=== PATIENT | male | born 1980 | race Caucasian/White ===

== ENCOUNTER 2018-06-02 01:57 | Emergency (ER) | payer OTHER ==
[~2018-06-02] VITALS: Ht 182.9 cm; Wt 90.7 kg
[2018-06-02 02:03] VITALS: BP 127/98
--- NOTE | 2018-06-02 02:11 | NUR ---
PT AMBULATED TO BED 12 WITH VSS.
--- NOTE | 2018-06-02 02:56 | NUR ---
PATIENT LEFT WITHOUT BEING SEEN BY DR. FERREIRA. NO FURTHER CARE PROVIDED FOR PATIENT.
[2018-06-02 03:56] LABS: APPEARANCE,URINE SL CLOUDY (CLEAR); BILIRUBIN,URINE 1+ (NEGATIVE); BLOOD, URINE TRACE-I (NEGATIVE); COLOR,URINE YELLOW (YELLOW); LEUKOCYTE ESTERASE ,URINE NEGATIVE (NEGATIVE); NITRITE, URINE NEGATIVE (NEGATIVE); PH,URINE 5.5 (5.0-9.0); UGLUCOSE NEGATIVE (NEGATIVE)
[2018-06-02 04:37] LABS: RBC,URINE 0-5 (RARE) /HPF (0-5); WBC,URINE 0-5 (RARE) /HPF (0-5)
== END 2018-06-02 02:56 | disposition left against medical advice (07) ==
LOC: MED 01:57
DX: K92.0 Hematemesis (principal); Z53.21 Procedure and treatment not carried out due to patient leaving prior to being seen by health care provider
CPT/HCPCS: 81001

== ENCOUNTER 2019-04-28 07:31 | Emergency (ER) | payer SELFPAY ==
[~2019-04-28] VITALS: Ht 182.9 cm; Wt 99.8 kg
[2019-04-28 07:33] VITALS: BP 135/77
--- NOTE | 2019-04-28 07:41 | NUR ---
PATIENT AMBULATED TO BED 11
--- NOTE | 2019-04-28 07:43 | NUR ---
PT TO ED WITH RT WRIST ABSCESS S/P INSULIN PEN INJECTION X 3 DAYS. AREA IS REDDNED AND WARM TO TOUCH. NO DRANIAGE NOTED. PT PLACED INTO BED, PENDING MD FIELDS.
[2019-04-28 08:08] VITALS: BP 135/77
--- NOTE | 2019-04-28 08:09 | NUR ---
Patient discharged with v/s stable. Written and verbal after care instructions given and explained. Patient alert, oriented and verbalized understanding of instructions. Ambulatory with steady gait. All questions addressed prior to discharge. ID band removed. Patient advised to follow up with PMD. Rx of KEFLEX, ZOFRAN, CLONIDINE, BENTYL given. Patient educated on indication of medication including possible reaction and side effects. Opportunity to ask questions provided and answered.
== END 2019-04-28 08:09 | disposition home or self-care (01) ==
LOC: MED 07:31
DX: L02.413 Cutaneous abscess of right upper limb (principal); F11.23 Opioid dependence with withdrawal; J45.909 Unspecified asthma, uncomplicated; K21.9 Gastro-esophageal reflux disease without esophagitis; Z79.1 Long term (current) use of non-steroidal anti-inflammatories (NSAID)
CPT/HCPCS: 99283

== ENCOUNTER 2019-09-22 21:54 | Emergency (ER) | payer SELFPAY ==
[~2019-09-22] VITALS: Ht 182.9 cm; Wt 90.7 kg
[2019-09-22 22:00] VITALS: BP 140/78
--- NOTE | 2019-09-22 22:03 | NUR ---
TO LOBBY A/W BED AMBULATORY
--- NOTE | 2019-09-22 23:00 | NUR ---
AMBULATED TO BED 12
[2019-09-22 23:06] VITALS: BP 140/78
--- NOTE | 2019-09-22 23:06 | NUR ---
38 Y/O M PRESENTS TO ED WITH C/O ABOMINAL PAIN AND CONSTIPATION. PT REPORTS LBM X1 MONTH AGO AND HAS TRIED LAXATIVES WITH NO RESULT. 8/10 ABDOMINAL PAIN, ACHING. PAIN DOES NOT RADIATE. BOWEL SOUNDS PRESENTS [id number]. PT DENIES NARCOTIC USE. WILL CONTINUE TO MONITOR.
--- NOTE | 2019-09-23 00:15 | NUR ---
PT SEEN WITH EYES CLOSED. VISIBLE CHEST RISE AND FALL NOTED. WILL CONTINUE TO MONITOR.
[2019-09-23 00:31] LABS: BASOPHILS # (AUTO) 0.1 K/uL (0.00-0.22); BASOPHILS % (AUTO) 0.8 % (0.0-2.0); EOSINOPHILS # (AUTO) 0.3 K/uL (0-0.4); EOSINOPHILS % (AUTO) 4.5 % (0.0-4.0); HEMATOCRIT 40.9 % (36-52); HEMOGLOBIN 13.9 g/dL (12.0-18.0); LYMPHOCYTES # (AUTO) 2.1 K/uL (2.0-11.5); LYMPHOCYTES % (AUTO) 27.5 % (20.5-51.1); MEAN CORPUSCULAR HEMOGLOBIN 28 pg (27-31); MEAN CORPUSCULAR HGB CONC 34 g/dL (33-37); MEAN CORPUSCULAR VOLUME 83.4 fL (80-94); MONOCYTES # (AUTO) 0.6 K/uL (0.8-1.0); MONOCYTES % (AUTO) 7.6 % (1.7-9.3); NEUTROPHILS # (AUTO) 4.6 K/uL (1.8-7.7); NEUTROPHILS % (AUTO) 59.6 % (42.2-75.2); PLATELET COUNT (AUTO) 281 K/uL (140-450); RED BLOOD CELL COUNT(AUTO) 4.91 MIL/uL (4.20-6.10); RED CELL DISTRIBUTION WIDTH 13.7 % (11.6-13.7); WHITE BLOOD COUNT (AUTO) 7.6 K/uL (4.8-10.8)
[2019-09-23 00:39] LABS: APPEARANCE,URINE CLEAR (CLEAR); BILIRUBIN,URINE NEGATIVE (NEGATIVE); BLOOD, URINE NEGATIVE (NEGATIVE); COLOR,URINE YELLOW (YELLOW); LEUKOCYTE ESTERASE ,URINE NEGATIVE (NEGATIVE); NITRITE, URINE NEGATIVE (NEGATIVE); UGLUCOSE NEGATIVE (NEGATIVE)
[2019-09-23 00:44] LABS: ANION GAP 10.6 (8-16); CARBON DIOXIDE 33.4 mmol/L (21-32); CREATININE 0.8 mg/dL (0.7-1.3)
[2019-09-23 00:48] LABS: ALBUMIN 3.7 g/dL (3.4-5.0); TOTAL BILIRUBIN 0.6 mg/dL (0.0-1.0)
--- NOTE | 2019-09-23 01:22 | NUR ---
Patient discharged with v/s stable. Written and verbal after care instructions given and explained. Patient alert, oriented and verbalized understanding of instructions. Ambulatory with steady gait. All questions addressed prior to discharge. ID band removed. Patient advised to follow up with PMD. Rx of MILK OF MAGNESIA given. Patient educated on indication of medication including possible reaction and side effects. Opportunity to ask questions provided and answered.
== END 2019-09-23 01:22 | disposition home or self-care (01) ==
LOC: MED 21:54
DX: K59.00 Constipation, unspecified (principal); R10.84 Generalized abdominal pain; J45.909 Unspecified asthma, uncomplicated; Z87.11 Personal history of peptic ulcer disease
CPT/HCPCS: 36415; 80053; 81003; 82150; 83690; 85025; 99284

== ENCOUNTER 2020-01-10 08:59 | Emergency (ER) | payer MEDICAID ==
[~2020-01-10] VITALS: Ht 182.9 cm; Wt 99.8 kg
--- NOTE | 2020-01-10 09:14 | NUR ---
PATIENT AMBULATED TO BED 8.
[2020-01-10 09:17] VITALS: BP 139/69
--- NOTE | 2020-01-10 09:22 | NUR ---
39YO M C/O AND EYE PAIN X 3 DAYS. PT STATES PAIN OF 10/10, BURNING. +REDNESS, +DRYNESS, +ITCHINESS, -DISCHARGE. PT ADMITS TO APPLYING VISINE EYEDROPS, WHICH PROVIDED NO RELIEF. PT ALSO COMPLAINS OF BLURRING OF VISION AND HEADACHE. WITH PRODUCTIVE COUGH X 3 DAYS, YELLOWISH SPUTUM. DENIES FEVER, RUNNY NOSE. IN ER, VSS. AOX4, PERRL 2MM. PT POSITIONED IN BED COMFORTABLY. ERMD MADE AWARE. PMH: CHILDHOOD ASTHMA NO MEDS
[2020-01-10] MEDS ORDERED: IPRATROPIUM 0.02% 0.5 MG/2.5 ML NEBU INH ONE (09:40)
[2020-01-10] MEDS ORDERED: predniSONE 20 MG TAB PO ONE (09:40)
[2020-01-10] MEDS ORDERED: ALBUTEROL 0.083% 2.5 MG/3 ML NEBU INH ONE (09:40)
--- NOTE | 2020-01-10 09:45 | NUR ---
RT AT BEDSIDE AT THIS TIME
[2020-01-10 10:50] VITALS: BP 139/69
--- NOTE | 2020-01-10 10:50 | NUR ---
Patient discharged with v/s stable. Written and verbal after care instructions given and explained. Patient alert, oriented and verbalized understanding of instructions. Ambulatory with steady gait. All questions addressed prior to discharge. ID band removed. Patient advised to follow up with PMD. Rx of AEROCHAMBER WITH MASK, PREDNISONE, ALBUTEROL given. Patient educated on indication of medication including possible reaction and side effects. Opportunity to ask questions provided and answered.
== END 2020-01-10 10:50 | disposition home or self-care (01) ==
LOC: MED 08:59
DX: B34.9 Viral infection, unspecified (principal); J98.01 Acute bronchospasm; R03.0 Elevated blood-pressure reading, without diagnosis of hypertension; F17.200 Nicotine dependence, unspecified, uncomplicated; J45.909 Unspecified asthma, uncomplicated; K21.9 Gastro-esophageal reflux disease without esophagitis; Z88.8 Allergy status to other drugs, medicaments and biological substances; Z71.6 Tobacco abuse counseling
CPT/HCPCS: 71045; 94640; 99283; J7512; J7613; J7644; Q0092

== ENCOUNTER 2020-01-31 13:04 | Emergency (ER) | payer MEDICAID ==
[~2020-01-31] VITALS: Ht 182.9 cm; Wt 110.2 kg
[2020-01-31 13:14] VITALS: BP 138/80
--- NOTE | 2020-01-31 13:15 | NUR ---
Patient ambulated to bed 3. RN evaluating patient at bedside.
--- NOTE | 2020-01-31 13:15 | NUR ---
39 Y/O M C/C RUE/LUE MULTIPLE ABSCESSES X 1 WEEK. PER PT PAIN 05/25, ON AND OFF. PT DENIES BEING BITTEN BY ANYTHING. PT NKA. HX ASTHMA. RX ALBUTEROL. NO OTHER S/S. SIDE RAIL X1.
[2020-01-31] MEDS ORDERED: LIDOCAINE MPF 1% 10 MG/ML VIAL INJ ONE (13:30)
--- NOTE | 2020-01-31 13:42 | NUR ---
YAO Szymanski at bedside for incision and drainage of abscess.
--- NOTE | 2020-01-31 13:44 | NUR ---
2ND VIAL OF XYLOCAINE 1% OBTAINED PER P.A BONILLA
--- NOTE | 2020-01-31 13:46 | NUR ---
Dayo BONILLA AT BEDSIDE
[2020-01-31] MEDS ORDERED: cefTRIAXone 1,000 MG in LIDOCAINE MPF 1% 2.1 ML IM ONE (14:05)
[2020-01-31] MEDS ORDERED: cefTRIAXone 1,000 MG VIAL ONE (14:17)
[2020-01-31] MEDS ORDERED: LIDOCAINE MPF 1% 5 ML ONE (14:18)
[2020-01-31 14:29] VITALS: BP 130/78
--- NOTE | 2020-01-31 14:29 | NUR ---
Patient discharged with v/s stable. Written and verbal after care instructions given and explained. Patient alert, oriented and verbalized understanding of instructions. Ambulatory with steady gait. All questions addressed prior to discharge. ID band removed. Patient advised to follow up with PMD. Rx of ACETAMINOPHEN,KEFLEX,BACTRIM given. Patient educated on indication of medication including possible reaction and side effects. Opportunity to ask questions provided and answered.
== END 2020-01-31 14:29 | disposition home or self-care (01) ==
LOC: MED 13:04
DX: L02.818 Cutaneous abscess of other sites (principal); J45.909 Unspecified asthma, uncomplicated; F17.210 Nicotine dependence, cigarettes, uncomplicated; Z91.09 Other allergy status, other than to drugs and biological substances
CPT/HCPCS: 96372; 99284; J0696; J2001

== ENCOUNTER 2020-07-27 16:06 | Emergency (ER) | payer MEDICAID ==
[~2020-07-27] VITALS: Ht 182.9 cm; Wt 99.8 kg
[2020-07-27 16:30] VITALS: BP 146/80
--- NOTE | 2020-07-27 16:37 | NUR ---
Note undone in EDM - 07/27/20 at 1640 by [facility] Patient discharged with v/s stable. Written and verbal after care instructions given and explained. Patient alert, oriented and verbalized understanding of instructions. Carried with by parent. All questions addressed prior to discharge. ID band removed. Patient advised to follow up with PMD. Rx of BENEDRYL given. Patient educated on indication of medication including possible reaction and side effects. Opportunity to ask questions provided and answered.
--- NOTE | 2020-07-27 16:39 | NUR ---
39 YEAR OLD MALE COMPLAINS OF MECHANICAL FALL ON STAIRS AND HIT LEFT SIDE OF FACE AND HAS PAIN IN NECK, SHOULDER, BUT MORE PAIN IN LOWER BACK AND LEFT LEG. PT WITHOUT VISIBLE ABRASION PRESENT, LEFT EYE REDDENED. PT STATES ABLE TO SEE WITHOUT BLURRY ON LEFT EYE. PT DENIES LOC. PT AOX4, BREATHING EVEN AND UNLABORED, SKIN WARM AND DRY. BED IN LOWEST POSITION, LOCKED, BED RAIL UPX1. PMH - ASTHMA ALLERGIES - IBUPROFEN
[2020-07-27 18:09] VITALS: BP 121/85
--- NOTE | 2020-07-27 18:10 | NUR ---
Patient discharged with v/s stable. Written and verbal after care instructions about back pain and cervical sprain given and explained. Patient alert, oriented and verbalized understanding of instructions. Ambulatory with steady gait. All questions addressed prior to discharge. ID band removed. Patient advised to follow up with PMD. Rx of ibuprofen given. Patient educated on indication of medication including possible reaction and side effects. Opportunity to ask questions provided and answered.
== END 2020-07-27 18:10 | disposition home or self-care (01) ==
LOC: MED 16:06
DX: S16.1XXA Strain of muscle, fascia and tendon at neck level, initial encounter (principal); M54.9 Dorsalgia, unspecified; R03.0 Elevated blood-pressure reading, without diagnosis of hypertension; R51 Headache; J45.909 Unspecified asthma, uncomplicated; K21.9 Gastro-esophageal reflux disease without esophagitis; Z88.6 Allergy status to analgesic agent; W18.39XA Other fall on same level, initial encounter; Y93.89 Activity, other specified; Y92.89 Other specified places as the place of occurrence of the external cause; Y99.8 Other external cause status
CPT/HCPCS: 70150; 72040; 72100; 99284

== ENCOUNTER 2022-02-19 13:17 | Emergency (ER) | payer MEDICAID ==
[~2022-02-19] VITALS: Ht 182.9 cm; Wt 99.8 kg
[2022-02-19 13:28] VITALS: BP 136/75
--- NOTE | 2022-02-19 13:31 | NUR ---
C/O 10/ LEFT EAR PAIN RADIATING TO LEFT JAW X 3 DAYS. PMH: ASTHMA
[2022-02-19] MEDS ORDERED: ONDANSETRON 4 MG ODT PO ONE (13:55)
[2022-02-19] MEDS ORDERED: HYDROcodone/APAP 5/325 MG 1 TAB TAB PO ONE (13:55)
[2022-02-19] MEDS ORDERED: AMOX-1230 PO (14:30)
[2022-02-19] MEDS ORDERED: ACET-8386 PO (14:30)
--- NOTE | 2022-02-19 14:49 | NUR ---
Patient discharged with v/s stable. Written and verbal after care instructions given and explained. Patient alert, oriented and verbalized understanding of instructions. Ambulatory with steady gait. All questions addressed prior to discharge. ID band removed. Patient advised to follow up with PMD. Rx of HYDROCODONE/ACETAMINOPHEN AND AMOXICILLIN/POTASSIUM CLAV given. Patient educated on indication of medication including possible reaction and side effects. Opportunity to ask questions provided and answered.
[2022-02-19 14:51] VITALS: BP 139/83
== END 2022-02-19 14:49 | disposition home or self-care (01) ==
LOC: MED 13:17
DX: R51.9 Headache, unspecified (principal); I88.9 Nonspecific lymphadenitis, unspecified; J45.909 Unspecified asthma, uncomplicated; K21.9 Gastro-esophageal reflux disease without esophagitis; Z88.6 Allergy status to analgesic agent
CPT/HCPCS: 99283; Q0162

== ENCOUNTER 2022-03-02 23:30 | Emergency (ER) | payer MEDICAID ==
[~2022-03-02] VITALS: Ht 180.3 cm; Wt 119.3 kg
[~2022-03-02 23:30] MED LIST: ACET-8386 PO; AMOX-1230 PO
[2022-03-02 23:41] VITALS: BP 143/98
--- NOTE | 2022-03-02 23:45 | NUR ---
PATIENT TO LOBBY
[2022-03-02] MEDS ORDERED: FAMOTIDINE 20 MG/2 ML VIAL IVP ONE (23:50)
[2022-03-02] MEDS ORDERED: NACL 0.9% 1,000 ML IV ONE (23:50)
--- NOTE | 2022-03-02 23:50 | NUR ---
Dr. Jasso at triage to exam patient.
--- NOTE | 2022-03-02 23:55 | NUR ---
PT TAKEN TO CT
--- NOTE | 2022-03-03 00:02 | NUR ---
PT RETURN FROM RADIOLOGY TO ER LOBBY
--- NOTE | 2022-03-03 00:07 | NUR ---
Blood for labwork drawn from left arm per cotton cleaner. Patient tolerated well.
[2022-03-03 00:20] LABS: BASOPHILS % (AUTO) 0.6 % (0.0-2.0); EOSINOPHILS # (AUTO) 0.3 K/uL (0-0.4); EOSINOPHILS % (AUTO) 3.3 % (0.0-4.0); HEMATOCRIT 40.4 % (36-52); LYMPHOCYTES # (AUTO) 2.9 K/uL (2.0-11.5); LYMPHOCYTES % (AUTO) 33.9 % (20.5-51.1); MEAN CORPUSCULAR HEMOGLOBIN 29 pg (27-31); MEAN CORPUSCULAR HGB CONC 35 g/dL (33-37); MEAN CORPUSCULAR VOLUME 82.6 fL (80-94); MONOCYTES # (AUTO) 0.6 K/uL (0.8-1.0); MONOCYTES % (AUTO) 7.5 % (1.7-9.3); NEUTROPHILS # (AUTO) 4.6 K/uL (1.8-7.7); NEUTROPHILS % (AUTO) 54.7 % (42.2-75.2); PLATELET COUNT (AUTO) 251 K/uL (140-450); RED BLOOD CELL COUNT(AUTO) 4.89 MIL/uL (4.20-6.10); RED CELL DISTRIBUTION WIDTH 13.6 % (11.6-13.7); WHITE BLOOD COUNT (AUTO) 8.4 K/uL (4.8-10.8)
[2022-03-03 00:38] LABS: ALBUMIN 3.8 g/dL (3.4-5.0); ANION GAP 9.8 (8-16); CARBON DIOXIDE 29.8 mmol/L (21-32); CREATININE 0.8 mg/dL (0.6-1.3); POTASSIUM 3.6 mmol/L (3.5-5.1); TOTAL BILIRUBIN 0.5 mg/dL (0.0-1.0)
--- NOTE | 2022-03-03 01:06 | NUR ---
PT TAKEN TO BED 1
--- NOTE | 2022-03-03 01:10 | NUR ---
Patient BIB by family from home. C/O vomiting blood x today. Patient reported, had vomiting with blood today, constipation on and off for a month.
[2022-03-03] MEDS ORDERED: FAMOTIDINE 20 MG/2 ML VIAL ONE ×2 (01:28→01:30)
[2022-03-03 01:34] LABS: APPEARANCE,URINE CLEAR (CLEAR); BILIRUBIN,URINE 1+ (NEGATIVE); BLOOD, URINE NEGATIVE (NEGATIVE); COLOR,URINE DARK YELLOW (YELLOW); LEUKOCYTE ESTERASE ,URINE NEGATIVE (NEGATIVE); NITRITE, URINE NEGATIVE (NEGATIVE); UGLUCOSE NEGATIVE (NEGATIVE)
[2022-03-03] MEDS ORDERED: ESOM40EC PO (02:38)
[2022-03-03 02:45] VITALS: BP 140/78
--- NOTE | 2022-03-03 02:45 | NUR ---
Patient discharged with v/s stable. Written and verbal after care instructions given and explained. Patient alert, oriented and verbalized understanding of instructions. Ambulatory with steady gait. All questions addressed prior to discharge. ID band removed. Patient advised to follow up with PMD. Rx of Nexium given. Patient educated on indication of medication including possible reaction and side effects. Opportunity to ask questions provided and answered.
== END 2022-03-03 02:45 | disposition home or self-care (01) ==
LOC: MED 23:30
DX: K52.9 Noninfective gastroenteritis and colitis, unspecified (principal); A04.8 Other specified bacterial intestinal infections
CPT/HCPCS: 36415; 74176; 80053; 81003; 82150; 83690; 85025; 87040; 96361; 96374; 99283; J3490; J7030

== ENCOUNTER 2022-04-04 19:36 | Emergency (ER) | payer MEDICAID ==
[~2022-04-04] VITALS: Ht 182.9 cm; Wt 112.6 kg
[~2022-04-04 19:36] MED LIST changes: +ESOM40EC PO
[2022-04-04 20:21] VITALS: BP 126/82
--- NOTE | 2022-04-04 20:27 | NUR ---
PT TAKEN TO BED 06.
[2022-04-04] MEDS ORDERED: AMOXIL/CLAVULANATE 875/125 MG 1 TAB PO ONE (20:35)
[2022-04-04] MEDS ORDERED: HYDROcodone/APAP 5/325 MG 1 TAB TAB PO ONE (20:35)
--- NOTE | 2022-04-04 20:35 | NUR ---
Dr. Becker examming patient.
--- NOTE | 2022-04-04 20:45 | NUR ---
PT STATES pain on left side of mouth yesterday tooth pain. DENIES N/V/D; SKIN IS PINK/WARM/DRY; AAOX4 WITH EVEN AND STEADY GAIT; LUNGS CLEAR BL; HR EVEN AND REGULAR; PT DENIES ANY FEVER, CP, SOB, OR COUGH AT THIS TIME; PATIENT STATES PAIN OF 10/10 AT THIS TIME; VSS; PATIENT POSITIONED FOR COMFORT; HOB ELEVATED; BEDRAILS UP X2; has been taking listerine allergy: motrin pmh: ulcer in stomach astma
[2022-04-04] MEDS ORDERED: ACET-8386 PO ×2 (20:49→21:04)
[2022-04-04] MEDS ORDERED: AMOX1TAB8 PO (20:49)
[2022-04-04 23:41] VITALS: BP 126/82
--- NOTE | 2022-04-04 23:45 | NUR ---
2109- Patient discharged with v/s stable. Written and verbal after care instructions given and explained. Patient alert, oriented and verbalized understanding of instructions. Ambulatory with steady gait. All questions addressed prior to discharge. ID band removed. Patient advised to follow up with PMD. Rx of HYDROCDON AND AMOXICIILIN/ CLA given. Opportunity to ask questions provided and answered.
--- NOTE | 2022-04-04 23:45 | NUR ---
The patient's care was reviewed and supervised by Susie Aj RN.
== END 2022-04-04 21:10 | disposition home or self-care (01) ==
LOC: MED 19:36
DX: K04.7 Periapical abscess without sinus (principal); H92.02 Otalgia, left ear; J45.909 Unspecified asthma, uncomplicated; K21.9 Gastro-esophageal reflux disease without esophagitis; Z79.899 Other long term (current) drug therapy; Z88.6 Allergy status to analgesic agent
CPT/HCPCS: 99283

== ENCOUNTER 2022-04-28 02:57 | Emergency (ER) | payer MEDICAID ==
[~2022-04-28] VITALS: Ht 182.9 cm; Wt 108.9 kg
[~2022-04-28 02:57] MED LIST changes: +AMOX1TAB8 PO
[2022-04-28 03:05] VITALS: BP 150/89
--- NOTE | 2022-04-28 03:05 | NUR ---
TO BED AMBULATORY
--- NOTE | 2022-04-28 03:23 | NUR ---
Dr. Lee examining patient.
[2022-04-28] MEDS ORDERED: LACTULOSE 20 GM/30 ML UDC PO ONE (03:30)
[2022-04-28] MEDS ORDERED: DOCUSATE SODIUM 100 MG GELCAP PO SCH (03:30)
[2022-04-28] MEDS ORDERED: SODIUM PHOSPHATE 118 ML ENEM RC ONE (03:30)
[2022-04-28] MEDS ORDERED: MAGNESIUM CITRATE 300 ML BTL PO ONE (03:30)
--- NOTE | 2022-04-28 04:16 | NUR ---
patient ambulated to the bathroom
--- NOTE | 2022-04-28 04:43 | NUR ---
PER PATIENT WILL ADMINISTER ENEMA FLEET BY SELF.
--- NOTE | 2022-04-28 05:11 | NUR ---
patient ambulated to the bathroom
--- NOTE | 2022-04-28 05:39 | NUR ---
per patient was able to have a BM "just a pebble". ER aware.
[2022-04-28] MEDS ORDERED: GLYCERIN ADULT 1 SUPP RC ONE (05:55)
--- NOTE | 2022-04-28 06:04 | NUR ---
Patient left without discharge paperwork.
[2022-04-28] MEDS ORDERED: GLYPS RC (06:05)
[2022-04-28] MEDS ORDERED: POLY17PD50 PO (06:05)
[2022-04-28] MEDS ORDERED: DOCU1TAB PO (06:05)
== END 2022-04-28 06:04 | disposition home or self-care (01) ==
LOC: MED 02:57
DX: K59.00 Constipation, unspecified (principal); R03.0 Elevated blood-pressure reading, without diagnosis of hypertension; J45.909 Unspecified asthma, uncomplicated; K21.9 Gastro-esophageal reflux disease without esophagitis; F17.210 Nicotine dependence, cigarettes, uncomplicated; Z71.6 Tobacco abuse counseling; Z79.899 Other long term (current) drug therapy; Z79.891 Long term (current) use of opiate analgesic; Z79.2 Long term (current) use of antibiotics; Z88.6 Allergy status to analgesic agent
CPT/HCPCS: 99284

== ENCOUNTER 2023-01-15 23:17 | Emergency (ER) | payer MEDICAID ==
[~2023-01-15 23:17] MED LIST changes: -ACET-8386 PO; +ACET-8905 PO; +DOCU1TAB PO; +GLYPS RC; +POLY17PD50 PO
--- NOTE | 2023-01-16 00:32 | NUR ---
Called no show in lobby or outside.
--- NOTE | 2023-01-16 01:04 | NUR ---
Patient left before triage.
== END 2023-01-16 01:04 | disposition left against medical advice (07) ==
LOC: MED 23:17
DX: M54.2 Cervicalgia (principal); M54.9 Dorsalgia, unspecified; Z53.21 Procedure and treatment not carried out due to patient leaving prior to being seen by health care provider

== ENCOUNTER 2023-07-14 20:41 | Emergency (ER) | payer MEDICAID ==
[~2023-07-14] VITALS: Ht 182.9 cm; Wt 113.4 kg
[2023-07-14 20:58] VITALS: BP 121/78; PULSE 76; RESP 20; TEMP 97.7; O2SAT 99
[2023-07-15 00:06] LABS: HEMOGLOBIN 15.6 g/dL (12.0-18.0); MEAN CORPUSCULAR HEMOGLOBIN 29 pg (27-31); MEAN CORPUSCULAR HGB CONC 35 g/dL (33-37); MEAN CORPUSCULAR VOLUME 83.4 fL (80-94); PLATELET COUNT (AUTO) 227 K/uL (140-450); RED BLOOD CELL COUNT(AUTO) 5.39 MIL/uL (4.20-6.10); RED CELL DISTRIBUTION WIDTH 13.9 % (11.6-13.7); WHITE BLOOD COUNT (AUTO) 9.4 K/uL (4.8-10.8)
[2023-07-15 00:19] LABS: APPEARANCE,URINE CLEAR (CLEAR); BILIRUBIN,URINE 1+ (NEGATIVE); BLOOD, URINE 1+ (NEGATIVE); COLOR,URINE ORANGE (YELLOW); LEUKOCYTE ESTERASE ,URINE NEGATIVE (NEGATIVE); NITRITE, URINE NEGATIVE (NEGATIVE); PH,URINE 5.5 (5.0-9.0); PROTEIN,URINE 1+ (NEGATIVE); UGLUCOSE NEGATIVE (NEGATIVE)
[2023-07-15 00:26] LABS: ICTOTEST NEGATIVE (NEGATIVE)
[2023-07-15 00:27] LABS: BACTERIA,URINE FEW /HPF (None Seen); MUCUS,URINE 2+ /LPF (None Seen); RBC,URINE 0-5 /HPF (0-5); TRICHOMONAS,URINE None Seen /HPF (None Seen); WBC,URINE 0-5 /HPF (0-5); YEAST,URINE None Seen /HPF (None Seen)
[2023-07-15 00:33] LABS: BASOPHILS % (MANUAL) 1 % (0-2); EOSINOPHILS % (MANUAL) 2 % (0-4); LYMPHOCYTES % (MANUAL) 29 % (20-46); MONOCYTES % (MANUAL) 7 % (5-12); SMUDGE CELLS FEW
[2023-07-15 00:40] LABS: ANION GAP 9.1 (8-16); CALCIUM 8.9 mg/dL (8.5-10.1); CARBON DIOXIDE 29.6 mmol/L (21-32); POTASSIUM 3.7 mmol/L (3.5-5.1); TOTAL BILIRUBIN 0.6 mg/dL (0.0-1.0); TOTAL PROTEIN, SERUM 8.2 g/dL (6.4-8.2)
[2023-07-15] MEDS ORDERED: DICYCLOMINE 20 MG/2 ML VIAL IM ONE (01:30)
[2023-07-15 02:08] LABS: BARBITURATE, URINE NEGATIVE ng/ml (NEG <=200)
[2023-07-15 02:09] LABS: AMPHETAMINE, URINE POSITIVE ng/ml (NEG <=1000); BENZODIAZEPINE, URINE NEGATIVE ng/mL (NEG <=200); CANNABINOID, URINE POSITIVE ng/mL (NEG <=50); COCAINE, URINE NEGATIVE ng/mL (NEG <=300); OPIATE, URINE NEGATIVE ng/mL (NEG <=2000); PHENCYCLIDINE SCREEN,URINE NEGATIVE ng/mL (NEG <=25)
[2023-07-15] MEDS ORDERED: BEN10 PO (03:08)
[2023-07-15] MEDS ORDERED: HYDROcodone/APAP 5/325 MG 1 TAB TAB PO ONE (03:20)
[2023-07-15 03:43] VITALS: BP 100/75; PULSE 74; RESP 18; TEMP 98; O2SAT 99
== END 2023-07-15 03:52 | disposition home or self-care (01) ==
LOC: MED 20:41
DX: R10.9 Unspecified abdominal pain (principal); R11.2 Nausea with vomiting, unspecified; J45.909 Unspecified asthma, uncomplicated; K21.9 Gastro-esophageal reflux disease without esophagitis; Z79.899 Other long term (current) drug therapy; Z88.6 Allergy status to analgesic agent
CPT/HCPCS: 36415; 74176; 80053; 80305; 81001; 83690; 85025; 96372; 99285; J0500; 99284

== ENCOUNTER 2024-01-15 03:55 | Emergency (ER) | payer MEDICAID ==
[~2024-01-15] VITALS: Ht 182.9 cm; Wt 108.9 kg
[~2024-01-15 03:55] MED LIST changes: +BEN10 PO
[2024-01-15 04:00] VITALS: BP 137/75; PULSE 79; RESP 17; TEMP 98; O2SAT 97
[2024-01-15 04:20] VITALS: BP 137/75; PULSE 79; RESP 17; TEMP 98; O2SAT 97
[2024-01-15] MEDS: ACETAMINOPHEN EXTRA STRENGTH 500 MG TAB PO ONE (05:04)
== END 2024-01-15 05:00 | disposition home or self-care (01) ==
LOC: MED 03:55
DX: S60.312A Abrasion of left thumb, initial encounter (principal); S11.83XA Puncture wound without foreign body of other specified part of neck, initial encounter; J45.909 Unspecified asthma, uncomplicated; K21.9 Gastro-esophageal reflux disease without esophagitis; Z79.1 Long term (current) use of non-steroidal anti-inflammatories (NSAID); Z79.899 Other long term (current) drug therapy; V49.88XA Car occupant (driver) (passenger) injured in other specified transport accidents, initial encounter; Y93.89 Activity, other specified; Y92.89 Other specified places as the place of occurrence of the external cause; Y99.8 Other external cause status
CPT/HCPCS: 99281